=== PATIENT | female | born 2000 | race Two or more races ===

== ENCOUNTER → 2024-12-03 | Emergency (ER) | payer OTHER ==
[~2024-12-03] VITALS: Ht 160 cm; Wt 59.0 kg
[~2024-12-03] MED LIST: ENALAPRIL MALEAT5 MG PO
== END | disposition left against medical advice (07) ==
LOC: ER 20:17
DX: Z53.21 Procedure and treatment not carried out due to patient leaving prior to being seen by health care provider (principal)